=== PATIENT | female | born 1940 | race Caucasian/White ===

== ENCOUNTER → 2018-01-03 | Outpatient (REF) | payer MEDICARE, OTHER | LOC: M SFHCCLAY 14:37 | DX: J02.9 Acute pharyngitis, unspecified (principal) ==

== ENCOUNTER → 2020-01-16 | Outpatient (REF) | payer MEDICARE ==
[~2020-01-16] MED LIST: ASPI-527 PO; ASPI325T47 PO; C 50TAB PO; CLOP75TA2 PO; CYAN100050 PO; LASI20TA3 PO; LISI-538 PO; OMEP-221 PO; POTA1TAB23 PO; PRAV40TA2 PO; VESI5TAB2 PO
[2020-01-16 16:36] LABS: BLOOD UREA NITROGEN 16 MG/DL (7-18); CARBON DIOXIDE LEVEL 30 MEQ/L (21-32); CHLORIDE LEVEL 101 MEQ/L (98-107); CREATININE FOR GFR 0.83 MG/DL (0.55-1.30); GLOMERULAR FILTRATION RATE > 60.0 (>39); GLUCOSE, FASTING 88 MG/DL (70-100); POTASSIUM SERUM 4.3 MEQ/L (3.5-5.1); SODIUM LEVEL 135 MEQ/L (136-145); THYROID STIMULATING HORMONE 0.991 uIU/ML (0.358-3.740)
== END ==
LOC: M SFHCCLAY 11:44
PROVIDERS: ATTEND Family Medicine
DX: I10 Essential (primary) hypertension (principal)
CPT/HCPCS: 80048; 84443; G0463

== ENCOUNTER → 2020-02-28 | Outpatient (REF) | payer MEDICARE | LOC: M SFHCCLAY 17:27 | PROVIDERS: ATTEND Nurse Practitioner Family | DX: L02.215 Cutaneous abscess of perineum (principal) ==

== ENCOUNTER 2020-03-26 15:54 | Inpatient (IN) | payer MEDICARE ==
[~2020-03-26] VITALS: Ht 157.5 cm; Wt 82.8 kg
[2020-03-26] MEDS: HumaLOG INSULIN (NovoLOG) PER UNIT SC SCH (03:56)
[2020-03-26] MEDS ORDERED: ONDANSETRON 4MG/2ML VIAL IV ONE (17:15)
[2020-03-26] MEDS ORDERED: MORPHINE 4 MG/ML 1ML VIAL/SYRINGE (J2270) IV ONE ×2 (17:15→19:15)
[2020-03-26] MEDS ORDERED: NS 1,000 ML IV ONE (17:15)
--- NOTE | 2020-03-26 17:40 | REPVR ---
PROCEDURE INFORMATION: Exam: XR Chest, 2 Views Exam date and time: 03/26/2020 5:14 PM Age: 79 years old Clinical indication: Pain; Other: Epigastric; Additional info: Epigastric pain TECHNIQUE: Imaging protocol: XR of the chest Views: 2 views. COMPARISON: No relevant prior studies available. FINDINGS: Lungs: Unremarkable. No consolidation. Pleural space: Unremarkable. No pleural effusion. No pneumothorax. Heart/Mediastinum: Unremarkable. No cardiomegaly. Bones/joints: Degenerative changes of aging throughout the thoracic spine. IMPRESSION: No acute abnormality. Electronically signed by: Mao Levi On 03/26/2020 17:40:35 PM
[2020-03-26 17:55] LABS: BASO % 0.2 % (0.0-1.0); EOS # 0.1 10^3/uL (0.0-0.5); EOS % 0.5 % (0.0-3.0); HEMATOCRIT 43.8 % (36.0-47.0); HEMOGLOBIN 14.8 g/dl (12.0-15.5); LYMPH # 0.9 10^3/uL (1.5-5.0); LYMPH % 6.4 % (24.0-44.0); MEAN CORPUSCULAR HEMOGLOBIN 29.5 pg (27.0-33.0); MEAN CORPUSCULAR HGB CONC 33.8 g/dl (32.0-36.5); MEAN CORPUSCULAR VOLUME 87.4 fl (80.0-96.0); MONO # 0.8 10^3/uL (0.0-0.8); MONO % 5.7 % (0.0-5.0); NEUTROPHILS # 12.2 10^3/uL (1.5-8.5); NEUTROPHILS % 86.7 % (36.0-66.0); PLATELET COUNT, AUTOMATED 276 10^3/uL (150-450); RED BLOOD COUNT 5.01 10^6/uL (4.00-5.40); WHITE BLOOD COUNT 14.1 10^3/uL (4.0-10.0)
[2020-03-26 18:01] LABS: ALBUMIN 3.8 GM/DL (3.2-5.2); ALT/SGPT 22 U/L (12-78); BILIRUBIN,DIRECT 0.1 MG/DL (0.0-0.2); BILIRUBIN,TOTAL 0.6 MG/DL (0.2-1.0); CK-MB VALUE MASS 1.2 NG/ML (<3.6); CPK CREATINE PHOSPHOKINASE 144 U/L (26-192); LIPASE 181 U/L (73-393); MB/CK RELATIVE INDEX 0.83 (< OR =4); TOTAL PROTEIN 7.3 GM/DL (6.4-8.2); TROPONIN I < 0.02 NG/ML (< 0.10)
[2020-03-26] MEDS ORDERED: ISOVUE-370 76% 100ML VIAL As Ordered ONE (19:04)
--- NOTE | 2020-03-26 19:46 | REPVR ---
PROCEDURE INFORMATION: Exam: CT Abdomen And Pelvis With Contrast Exam date and time: 03/26/2020 7:15 PM Age: 79 years old Clinical indication: Abdominal pain; Epigastric; Additional info: Epigastric pain wraps around back, HX pancreatitits TECHNIQUE: Imaging protocol: Computed tomography of the abdomen and pelvis with intravenous contrast. Radiation optimization: All CT scans at this facility use at least one of these dose optimization techniques: automated exposure control; mA and/or kV adjustment per patient size (includes targeted exams where dose is matched to clinical indication); or iterative reconstruction. Contrast material: ISOVUE 370; Contrast volume: 100 ml; Contrast route: INTRAVENOUS (IV); COMPARISON: No relevant prior studies available. FINDINGS: Liver: Unremarkable. No mass. Gallbladder and bile ducts: Dilated common bile duct measuring 10 mm in diameter is likely secondary to the post cholecystectomy state. The distal duct appears to taper to the ampulla. Correlate with signs and symptoms of biliary obstruction. No calcified duct stone is identified. Consider follow-up MRCP as clinically indicated. Status post cholecystectomy. Pancreas: Mild swelling and hazy density within the fat surrounding the head of the pancreas consistent with acute pancreatitis. No pancreatic duct dilatation. Spleen: Unremarkable. No splenomegaly. Adrenals: Normal. No mass. Kidneys and ureters: Unremarkable. No stones. No hydronephrosis. Stomach and bowel: Small gastric hiatus hernia. Colonic diverticulosis. No diverticulitis or colitis. Normal small bowel. Appendix: No evidence of appendicitis. Intraperitoneal space: Unremarkable. No free air. No significant fluid collection. Vasculature: Moderate atherosclerosis of the abdominal aorta and iliac arteries. No aneurysm. Lymph nodes: Unremarkable. No enlarged lymph nodes. Bladder: Unremarkable as visualized. Reproductive: IUD within the uterus. No adnexal mass. Bones/joints: Degenerative spondylosis of the lower thoracic and lumbar spine. Grade 1 anterolisthesis of L3 and L4. No fracture. Soft tissues: Unremarkable. IMPRESSION: 1. Acute pancreatitis. 2. Status post cholecystectomy. 3. Dilated common bile duct without calcified duct stone or other obstructing mass. Correlate with signs and symptoms of biliary obstruction. Consider follow-up MRCP as clinically indicated. 3. Colonic diverticulosis. 4. Small gastric hiatus hernia. Electronically signed by: Mao Levi On 03/26/2020 19:45:46 PM
[2020-03-26] MEDS ORDERED: ACETAMINOPHEN TAB 650MG DOSE (2X325MG) PO PRN (20:15)
[2020-03-26] MEDS ORDERED: MOM 30ML SUSPENSION UDC PO PRN (20:15)
[2020-03-26] MEDS ORDERED: MAALOX 30 ML SUSP *UDC PO PRN (20:15)
[2020-03-26] MEDS ORDERED: LISI-538 PO (20:36)
[2020-03-26] MEDS ORDERED: POTA1TAB23 PO (20:36)
[2020-03-26] MEDS ORDERED: LASI20TA3 PO (20:36)
[2020-03-26] MEDS ORDERED: VESI5TAB2 PO (20:36)
[2020-03-26] MEDS ORDERED: PRAV40TA2 PO (20:36)
[2020-03-26] MEDS ORDERED: CYAN100050 PO (20:36)
[2020-03-26] MEDS ORDERED: CLOP75TA2 PO (20:36)
[2020-03-26] MEDS ORDERED: OMEP-221 PO (20:36)
[2020-03-26] MEDS ORDERED: C 50TAB PO (20:36)
[2020-03-26 20:48] LABS: CHOLESTEROL LEVEL 153 MG/DL (<200); CHOLESTEROL RISK RATIO 2.684 (<5); HDL CHOLESTEROL 57 MG/DL (>40); LDL CHOLESTEROL 72 MG/DL (<100); NON-HDL-C 96 MG/DL; TRIGLYCERIDES LEVEL 119 MG/DL (<150)
[2020-03-26 21:03] LABS: HEMOGLOBIN A1c 6.8 %
[2020-03-26] MEDS: NS 1,000 ML IV SCH (22:08)
--- NOTE | 2020-03-26 22:27 | HPEPDOC ---
[facility] Medical History & Physical Date of Admission Mar 26, 2020 Date of Service: Mar 26, 2020 Primary Care Physician: Jaziel Claros MD Attending Physician: BETTE HUMPHREY MD History and Physical TIME OF SERVICE: 850pm CHIEF COMPLAINT: abdominal pain HISTORY OF PRESENT ILLNESS: This 79 yr old F w presented w c/o 9/10 in severity constant non-radiating epigastric abdominal pain that begun 3 days ago and improved to 6/10 in severity after she received morphine. She has also had episodes of yellow/green emesis along with fever and chills. REVIEW OF SYSTEMS: 12 point review of systems negative except as listed in HPI PAST MEDICAL/ SURGICAL HISTORY: hx of pancreatitis per pt cause is unclear (has been evaluated at [facility]) Chronic HTN TIA Appendectomy Cholecystectomy Tonsillectomy Bladder suspension surgery SOCIAL HISTORY: Former smoker/ doesnt drink or use recreational drugs / retired / lives in [place] but was born close to [facility] and has a summer home in this area FAMILY HISTORY: Reviewed none ALLERGIES: Please see below. HOME MEDICATIONS: Please see below. PHYSICAL EXAM Vital Signs Date Time Temp Pulse Resp B/P (MAP) Pulse Ox O2 Delivery O2 Flow Rate FiO2 03/26/20 15:54 97.0 86 20 224/105 (144) 97 Room Air GENERAL APPEARANCE: obese/ well developed /NAD HEENT: no scleral icterus / EOMI CARDIOVASCULAR: RRR/NMRG / radial pulse intact LUNGS: CTAB on RA ABDOMEN: distended/ tender w percussion MUSCULOSKELETAL: JERRI x 4 INTEGUMENT: no generalized pallor or jaundice NEUROLOGICAL: CN -12 intact / speech not dysarthric PSYCHIATRIC: A&Ox 3 /able to understand and follow all commands LABORATORY DATA: 03/26/20 17:13 Immature Granulocyte % (Auto) 0.5, Neutrophils (%) (Auto) 86.7H, Lymphocytes (%) (Auto) 6.4L, Monocytes (%) (Auto) 5.7H, Eosinophils (%) (Auto) 0.5, Basophils (%) (Auto) 0.2, Neutrophils # (Auto) 12.2H, Lymphocytes # (Auto) 0.9L, Monocytes # (Auto) 0.8, Eosinophils # (Auto) 0.1, Basophils # (Auto) 0.0, Nucleated Red Blood Cells % (auto) 0.0, Total Bilirubin 0.6, Direct Bilirubin 0.1, Aspartate Amino Transf (AST/SGOT) 28, Alanine Aminotransferase (ALT/SGPT) 22, Alkaline Phosphatase 74, Total Creatine Kinase 144, Creatine Kinase MB 1.2, Creatine Kinase MB Relative Index 0.83, Troponin I < 0.02, Total Protein 7.3, Albumin 3.8, Albumin/Globulin Ratio 1.1L, Triglycerides Level 119, Total Cholesterol 153, LDL Cholesterol 72, Non-HDL Cholesterol (LDL + VLDL) 96, Total HDL Cholesterol 57, Cholesterol/HDL Ratio 2.684, Lipase 181 03/26/20 18:55: Urine Color STRAW, Urine Appearance CLEAR, Urine pH 6.0, Urine Specific Dennison 1.006, Urine Protein NEGATIVE, Urine Glucose (UA) NEGATIVE, Urine Ketones TRACEH, Urine Blood NEGATIVE, Urine Nitrite NEGATIVE, Urine Bilirubin NEGATIVE, Urine Urobilinogen 0.2, Urine Leukocyte Esterase NEGATIVE, Urine WBC (Auto) 0, Urine RBC (Auto) 5H, Urine Hyaline Casts (Auto) 0, Urine Bacteria (Auto) NEGATIVE, Urine Squamous Epithelial Cells 0, Urine Mucus (Auto) SMALL, Urine Sperm (Auto IMAGING: Chest xray No acute abnormality CT abd/pelvis 1. Acute pancreatitis. 2. Status post cholecystectomy. 3. Dilated common bile duct without calcified duct stone or other obstructing mass. Correlate with signs and symptoms of biliary obstruction. Consider follow-up MRCP as clinically indicated. 3. Colonic diverticulosis. 4. Small gastric hiatus hernia. MICROBIOLOGY: Please see below. ASSESSMENT: is a 79 yr old w a hx of pancreatitis and cholecystectomy who presented w c/o of abdominal pain which is likely due to pancreatitis based on CT scan findings. PLAN: 1 Acute recurrent pancreatitis Diagnosis made based on presence of 2/3 of abdominal pain, consistent CT scan findings and elevated lipase Her lipase is likely low chronic pancreatitis. LFTs are unremarkable. Possible causes: ethanol, hyperlipidemia, hypercalcemia, autoimmune (ODONNELL) or furosemide Plan: admit to medical floor / NPO/ IVF / f/u serum ETO, lipid panel, Ca ++ / dc furosemide / IV toradol & morphine PRN for pain / obtain records from [facility] 2 Dilated CBD Plan: f/u MRCP 3 Leucocytosis Likely reactive bc she doesnt have other SIRS criteria Plan: monitor vitals 4 Uncontrolled HTN Plan: c/w Lisinopril / dc lasix and start amlodipine 5 TIA Plan: clopidogrel and pravastatin 6 Obesity w BMI of 34.1 complicates care Plan: f/u A1C & w PCP for sleep apnea screening DVT Px w lovenox Dispo: home after more than 2 midnights stay LATE ENTRY 225AM #Newly Diagnosed DM A1C 6.8% Plan: FSBS, SSI, hypoblycemia protocol / day time team to start metformin when she is ready for discharge Home Medications Scheduled Ascorbic Acid (Vitamin C) 500 Mg Tablet, 500 MG PO DAILY Clopidogrel Bisulfate (Clopidogrel) 75 Mg Tablet, 75 MG PO DAILY Cyanocobalamin (Vitamin B-12) (Vitamin B-12) 1,000 Mcg Tablet, 1,000 MCG PO DAILY Furosemide (Lasix) 20 Mg Tablet, 20 MG PO DAILY Lisinopril (Lisinopril) 20 Mg Tablet, 20 MG PO QHS Omeprazole (Omeprazole) 40 Mg Capsule.dr, 40 MG PO DAILY Potassium Chloride (Potassium Chloride) 10 Meq Tablet.er, 10 MEQ PO DAILY Pravastatin Sodium (Pravastatin Sodium) 40 Mg Tablet, 40 MG PO QHS Solifenacin Succinate (Vesicare) 5 Mg Tablet, 5 MG PO DAILY Allergies Coded Allergies: No Known Allergies (Unverified , 03/26/20) A-FIB/CHADSVASC A-FIB History Current/History of A-Fib/PAF?: No Current PO Anticoag Therapy: BETTE Ricci MD Mar 26, 2020 22:27
[2020-03-26] MEDS ORDERED: lisinopriL 20 MG TAB PO SCH (22:30)
[2020-03-27] MEDS: PRAVASTATIN 20 MG TAB PO SCH ×2 (00:36→21:47)
[2020-03-27] MEDS: MORPHINE 2 MG/ML 1ML VIAL (J2270) IV PRN ×2 (00:37→03:51)
[2020-03-27 00:45] VITALS: BP 132/84
[2020-03-27] MEDS ORDERED: GLUCOSE 4GM CHEW TABLET PO PRN (02:15)
[2020-03-27] MEDS ORDERED: GLUCAGON INJ 1MG VIAL SC PRN (02:15)
[2020-03-27] MEDS ORDERED: DEXTROSE 50% 50 ML SYRINGE IV PRN (02:15)
[2020-03-27] MEDS: NS 1,000 ML IV SCH ×2 (03:53→11:51)
[2020-03-27] MEDS ORDERED: ONDANSETRON 4 MG ORAL DISINTEGRATING TAB PO PRN (04:00)
[2020-03-27 05:55] LABS: HEMATOCRIT 45.9 % (36.0-47.0); HEMOGLOBIN 15.1 g/dl (12.0-15.5); MEAN CORPUSCULAR HEMOGLOBIN 30.4 pg (27.0-33.0); MEAN CORPUSCULAR HGB CONC 32.9 g/dl (32.0-36.5); MEAN CORPUSCULAR VOLUME 92.5 fl (80.0-96.0); PLATELET COUNT, AUTOMATED 199 10^3/uL (150-450); RED BLOOD COUNT 4.96 10^6/uL (4.00-5.40); WHITE BLOOD COUNT 8.4 10^3/uL (4.0-10.0)
[2020-03-27] MEDS: KETOROLAC TROMETHAMINE 10 MG TAB PO SCH ×3 (06:23→18:09)
[2020-03-27 06:25] LABS: BLOOD UREA NITROGEN 11 MG/DL (7-18); CALCIUM LEVEL 8.4 MG/DL (8.8-10.2); CARBON DIOXIDE LEVEL 24 MEQ/L (21-32); CHLORIDE LEVEL 103 MEQ/L (98-107); CREATININE FOR GFR 0.62 MG/DL (0.55-1.30); GLOMERULAR FILTRATION RATE > 60.0 (>39); GLUCOSE, FASTING 122 MG/DL (70-100); LDH LACTATE DEHYDROGENASE 202 U/L (84-246); SODIUM LEVEL 136 MEQ/L (136-145)
[2020-03-27] MEDS: HumaLOG INSULIN (NovoLOG) PER UNIT SC SCH ×4 (06:32→21:00)
[2020-03-27 08:00] VITALS: BP 128/74
[2020-03-27] MEDS: OMEPRAZOLE 20 MG CAP PO SCH (08:55)
[2020-03-27] MEDS: SOLIFENACIN 5 MG TAB PO SCH (08:55)
[2020-03-27] MEDS: CLOPIDOGREL 75 MG TAB PO SCH (08:56)
[2020-03-27] MEDS: POTASSIUM CHLORIDE 10 MEQ SR TABLET PO SCH (08:56)
[2020-03-27] MEDS: ENOXAPARIN 40MG/0.4ML SYRINGE (J1650 PER 10MG) SC SCH (08:56)
[2020-03-27] MEDS ORDERED: FUROSEMIDE 20 MG TAB PO SCH (09:00)
[2020-03-27 12:00] VITALS: BP 162/82
[2020-03-27 16:00] VITALS: BP 188/82
[2020-03-27] MEDS ORDERED: amLODIPine 10 MG TAB PO ONE (18:00)
[2020-03-27] MEDS ORDERED: NS 1,000 ML IV SCH (18:00)
[2020-03-27 20:00] VITALS: BP 186/88
--- NOTE | 2020-03-27 21:02 | REPVR ---
PROCEDURE INFORMATION: Exam: MR Abdomen Without Contrast Exam date and time: 03/27/2020 8:40 PM Age: 79 years old Clinical indication: Abdominal pain; Acute; Patient HX: Urq abd pain, nausea >1 day; Additional info: Acute pancreatitis w dilated cbd on CT R/O stone or mass TECHNIQUE: Imaging protocol: MR of the abdomen without contrast. 3D rendering (Not supervised by radiologist): MIP and/or 3D reconstructed images were created by the technologist. COMPARISON: CT ABD/PEL W/IV CONTRAST ONLY 03/26/2020 7:09 PM FINDINGS: Liver: No mass. Gallbladder and bile ducts: There has been a cholecystectomy. Mild dilatation of the common bile duct measures 7.4 mm. Finding likely related to post cholecystectomy physiology. No evidence of choledocholithiasis or obstructing mass. No significant intrahepatic biliary dilatation. Pancreas: Inflammatory changes surround the pancreatic head which is slightly enlarged. Findings consistent with acute focal pancreatitis. Spleen: Unremarkable. No splenomegaly. Adrenals: Unremarkable. No mass. Kidneys and ureters: Unremarkable. No solid mass. No hydronephrosis. Stomach and bowel: Visualized stomach and intestines are unremarkable. Intraperitoneal space: No free fluid. Arteries: No abdominal aortic aneurysm. Bones/joints: Levoscoliosis and degenerative spondylosis. Soft tissues: Unremarkable. IMPRESSION: 1. There has been a cholecystectomy. 2. Mild dilatation of the common bile duct measures 7.4 mm. Finding likely related to post cholecystectomy physiology. No evidence of choledocholithiasis or obstructing mass. No significant intrahepatic biliary dilatation. 3. Inflammatory changes surround the pancreatic head which is slightly enlarged. Findings consistent with acute focal pancreatitis. Electronically signed by: Frantz Hwang On 03/27/2020 21:02:29 PM
[2020-03-27] MEDS: lisinopriL 20 MG TAB PO SCH (21:47)
[2020-03-28] VITALS: BP 158/80
[2020-03-28] MEDS: KETOROLAC TROMETHAMINE 10 MG TAB PO SCH ×2 (00:26→06:35)
[2020-03-28 04:00] VITALS: BP 138/70
[2020-03-28] MEDS: HumaLOG INSULIN (NovoLOG) PER UNIT SC SCH (07:30)
[2020-03-28 08:00] VITALS: BP 134/78
[2020-03-28] MEDS: ENOXAPARIN 40MG/0.4ML SYRINGE (J1650 PER 10MG) SC SCH (09:00)
[2020-03-28] MEDS ORDERED: amLODIPine 10 MG TAB PO SCH (09:00)
[2020-03-28 09:03] LABS: BASO % 0.5 % (0.0-1.0); EOS # 0.2 10^3/uL (0.0-0.5); EOS % 2.2 % (0.0-3.0); HEMATOCRIT 42.4 % (36.0-47.0); LYMPH # 1.1 10^3/uL (1.5-5.0); LYMPH % 12.6 % (24.0-44.0); MEAN CORPUSCULAR HEMOGLOBIN 29.9 pg (27.0-33.0); MEAN CORPUSCULAR VOLUME 90.6 fl (80.0-96.0); MONO # 0.7 10^3/uL (0.0-0.8); MONO % 8.1 % (0.0-5.0); NEUTROPHILS # 6.6 10^3/uL (1.5-8.5); NEUTROPHILS % 76.3 % (36.0-66.0); PLATELET COUNT, AUTOMATED 251 10^3/uL (150-450); RED BLOOD COUNT 4.68 10^6/uL (4.00-5.40); WHITE BLOOD COUNT 8.6 10^3/uL (4.0-10.0)
[2020-03-28 09:25] VITALS: BP 134/78
[2020-03-28] MEDS: SOLIFENACIN 5 MG TAB PO SCH (09:25)
[2020-03-28] MEDS: lisinopriL 20 MG TAB PO SCH (09:25)
[2020-03-28] MEDS: CLOPIDOGREL 75 MG TAB PO SCH (09:26)
[2020-03-28] MEDS: OMEPRAZOLE 20 MG CAP PO SCH (09:26)
[2020-03-28 09:27] LABS: ALBUMIN 3.2 GM/DL (3.2-5.2); ALT/SGPT 38 U/L (12-78); BILIRUBIN,TOTAL 0.4 MG/DL (0.2-1.0); BLOOD UREA NITROGEN 9 MG/DL (7-18); C REACTIVE PROTEIN QUANTITATIV 3.58 MG/DL (0.00-0.30); CALCIUM LEVEL 8.5 MG/DL (8.8-10.2); CARBON DIOXIDE LEVEL 27 MEQ/L (21-32); CHLORIDE LEVEL 105 MEQ/L (98-107); CREATININE FOR GFR 0.73 MG/DL (0.55-1.30); GLOMERULAR FILTRATION RATE > 60.0 (>39); GLUCOSE, FASTING 109 MG/DL (70-100); LIPASE 62 U/L (73-393); POTASSIUM SERUM 3.9 MEQ/L (3.5-5.1); SODIUM LEVEL 139 MEQ/L (136-145); TOTAL PROTEIN 6.4 GM/DL (6.4-8.2)
[2020-03-28] MEDS: POTASSIUM CHLORIDE 10 MEQ SR TABLET PO SCH (09:27)
[2020-03-28 09:39] LABS: ERYTHROCYTE SEDIMENTATION RATE 35 mm/hr (0-30)
--- NOTE | 2020-03-29 13:21 | IPN ---
DATE: 03/27/2020 SUBJECTIVE: The patient is seen and examined at the bedside. Chart has been reviewed. Patient still complains of epigastric mid abdominal pain without radiation to the back. No fever or chills. No nausea or vomiting. Pain is improved from yesterday. PHYSICAL EXAMINATION: VITAL SIGNS: Temperature is 97.6, pulse is 78, respiratory rate is 16, blood pressure is 128/74, 94% on room air. GENERAL: The patient is awake, alert and oriented x3, answering questions appropriately. No conversational dyspnea or use of respiratory or accessory muscles. HEENT: Pupils are equally reactive to light and accommodation. Extraocular muscles are intact. Dry mucous membranes. No icterus or jaundice. NECK: No JVD. No thyromegaly. No cervical lymphadenopathy. LUNGS: Clear to auscultation. No wheezing, rales or rhonchi. HEART: S1 and S2. Sinus rhythm. No murmurs, rubs or gallops. ABDOMEN: Soft, slightly tender in the epigastric, left upper quadrant. No rebound or guarding. Positive bowel sounds in all four quadrants. Nondistended. No abdominal bruit. No CVA tenderness. EXTREMITIES: No cyanosis, clubbing or any pitting edema. LABORATORY DATA: White count 8.4, hemoglobin 15, hematocrit 45, platelet count 199,000, sodium 136, potassium 4, chloride 103, bicarbonate 24, BUN 11, creatinine 0.62, glucose of 122, A1c is 6.8. __ 8.6, direct bilirubin of 0.1, AST 28, ALT 22, alkaline phosphatase is 74, LDH is 202. Lipid profile: LDL 72, non-HDL 96, total HDL 57, lipase of 181. CT of abdomen and pelvis on 03/26/2020: Dilated common bile duct measuring 10 mm in diameter secondary to post-cholecystectomy state. Distal duct appears to taper to the ampulla. No calcified duct stone was identified, consider MRCP, status post cholecystectomy. Mild swelling and hazy density within the fat surrounding the head of the pancreas consistent with acute pancreatitis. ASSESSMENT AND PLAN: This is a 79-year-old female with a history of prior pancreatitis admitted to [facility] at [facility], hypertension, TIA, appendectomy, cholecystectomy, bladder surgery who presented to the Emergency Room with a three day history of nonradiating epigastric abdominal pain and found to have acute pancreatitis. IMPRESSION: 1. Recurrent acute pancreatitis. Patient denies any history of alcohol abuse with prior cholecystectomy, slightly dilated biliary duct. Will obtain MRCP. Continue with IV fluids and NPO status. If dilated or worsening bilirubin we will consult GI for ERCP, continue with supportive care, pain medications and bowel regimen. 2. Hypertension, on Lasix and Norvasc. 3. TIA, on Plavix and pravastatin. 4. Obesity, BMI is 34 complicating care. 5. DVT prophylaxis with Lovenox. 6. Disposition: Two to three days of hospital, advance diet and discharge home. MTDD
--- NOTE | 2020-04-05 15:26 | ECGEPIP ---
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
--- NOTE | 2020-04-11 11:54 | DSES ---
DATE OF ADMISSION: 03/26/2020 DATE OF DISCHARGE: 03/28/2020 PRIMARY DISCHARGE DIAGNOSES: 1. Acute pancreatitis status post cholecystectomy. MRCP is negative. 2. Chronic hypertension. 3. History of transient ischemic attack. DISCHARGE MEDICATIONS: - ascorbic acid 500 daily - Plavix 75 daily - vitamin B12 at 1000 mcg daily - Lasix 20 mg daily - Lisinopril 20 every night - omeprazole 40 daily - potassium 10 mEq daily - pravastatin 40 mg every night - VesiCare 5 mg daily HOSPITAL COURSE: This is a 79-year-old female who presented to the emergency room on 03/26/2020 due to complaint of epigastric abdominal pain for 3 days. Despite morphine, patient also complained of yellow-green emesis. Was afebrile with white count of 14,000 on arrival. Diagnosed with pancreatitis. CT abdomen and pelvis did not show any abscess or pseudocyst. There was mild swelling and hazy density within the fat surrounding the head of the pancreas but no pancreatic duct dilatation. No calcified duct stone was identified. MRCP performed showed cholecystectomy, mild dilatation of the common bile duct, measuring 7.4 mm, related to post cholecystectomy physiology. No evidence of choledocholithiasis or obstructing mass. No significant intrahepatic biliary dilatation, Inflammatory changes surrounding the pancreatic head consistent with acute focal pancreatitis. Patient was kept nothing by mouth and given intravenous fluids. Lasix was discontinued temporarily. She had 2.6 liters of input with 4.5 liters of output. Remained net negative with weight remaining at 82.8 kg. Patient was advanced on a diet without worsening abdominal pain, nausea, vomiting, fever, or chills. She was subsequently discharged home in stable condition to followup with her primary care physician within a week of discharge and referral to manager marketing due to recurrent pancreatitis. PHYSICAL EXAMINATION ON DISCHARGE: VITAL SIGNS: Temperature 98, pulse 75, respiratory rate 20, blood pressure 134/78, 96% on room air. GENERAL: Awake, alert, oriented times three. answering questions appropriately. Anicteric sclerae. No jaundice, no icterus. No jugular venous distention (JVD) or thyromegaly. LUNGS: Clear to auscultation. No wheezing, rales, or rhonchi. HEART: S1, S2, sinus rhythm. ABDOMEN: Soft, nontender, nondistended. Positive bowel sounds. EXTREMITIES: No cyanosis, clubbing, or pitting edema. DISCHARGE LABORATORY DATA: March 28: White count 8.6, hemoglobin 14, hematocrit 42, platelet count 251. Sodium 139, potassium 3.9, chloride 105, bicarbonate 27, BUN 9, creatinine 0.73, glucose 109. Lipase of 62. Microbiology: None. IMAGING STUDIES: On March 26, CT abdomen and pelvis: Focal pancreatitis. Status post cholecystectomy. Dilated common bile duct without calcified stone or other obstructing mass. Consider MRCP. Colonic diverticulosis. Gastric hiatal hernia. MRCP 03/27/2020: Cholecystectomy. Mild dilatation of the common bile duct measures 7.4 mm, consistent with prior cholecystectomy physiology. No evidence of choledocholithiasis or obstructive mass. No significant intrahepatic biliary dilatation. Inflammatory changes surrounding pancreatic head, which is slightly enlarged, consistent with acute focal pancreatitis. TIME SPENT ON DISCHARGE: 30 minutes. MTDD
== END 2020-03-28 11:40 | disposition home or self-care (01) | DRG 440 ==
LOC: M ED 15:54 → M ED INP 20:06 → ENRESERV 22:58 → M PCU 03-27 00:04
PROVIDERS: ADMIT Internal Medicine; ATTEND Internal Medicine
DX: K85.90 Acute pancreatitis without necrosis or infection, unspecified (principal); I10 Essential (primary) hypertension; Z86.73 Personal history of transient ischemic attack (TIA), and cerebral infarction without residual deficits; E66.9 Obesity, unspecified; Z68.34 Body mass index [BMI] 34.0-34.9, adult; E11.9 Type 2 diabetes mellitus without complications; Z79.899 Other long term (current) drug therapy

== ENCOUNTER 2020-04-03 11:58 | Inpatient (IN) | payer MEDICARE ==
[~2020-04-03] VITALS: Ht 157.5 cm; Wt 80.7 kg
[~2020-04-03 11:58] MED LIST changes: +ASCORBIC ACID 500 MG TAB PO SCH; -ASPI-527 PO; -ASPI325T47 PO; +FUROSEMIDE 20 MG TAB PO SCH; +POTASSIUM CHLORIDE 10 MEQ SR TABLET PO SCH
[2020-04-03] MEDS ORDERED: ONDANSETRON 4MG/2ML VIAL IV ONE (13:00)
[2020-04-03] MEDS ORDERED: NS 1,000 ML IV SCH ×2 (13:00→16:30)
[2020-04-03] MEDS ORDERED: ASPI325T47 PO (13:16)
[2020-04-03 13:43] LABS: BASO % 0.3 % (0.0-1.0); EOS # 0.1 10^3/uL (0.0-0.5); EOS % 0.5 % (0.0-3.0); HEMOGLOBIN 15.6 g/dl (12.0-15.5); MEAN CORPUSCULAR HEMOGLOBIN 29.8 pg (27.0-33.0); MEAN CORPUSCULAR HGB CONC 33.9 g/dl (32.0-36.5); MONO # 0.6 10^3/uL (0.0-0.8); MONO % 5.1 % (0.0-5.0); NEUTROPHILS # 10.6 10^3/uL (1.5-8.5); NEUTROPHILS % 85.5 % (36.0-66.0); PLATELET COUNT, AUTOMATED 312 10^3/uL (150-450); RED BLOOD COUNT 5.23 10^6/uL (4.00-5.40); WHITE BLOOD COUNT 12.4 10^3/uL (4.0-10.0)
[2020-04-03] MEDS: MORPHINE 4 MG/ML 1ML VIAL/SYRINGE (J2270) IV PRN ×2 (13:45→16:16)
[2020-04-03 14:14] LABS: ALT/SGPT 23 U/L (12-78); BILIRUBIN,DIRECT 0.2 MG/DL (0.0-0.2); BILIRUBIN,TOTAL 0.5 MG/DL (0.2-1.0); LIPASE 285 U/L (73-393); TOTAL PROTEIN 7.7 GM/DL (6.4-8.2)
[2020-04-03 14:39] LABS: BLOOD UREA NITROGEN 13 MG/DL (7-18); CALCIUM LEVEL 8.9 MG/DL (8.8-10.2); CARBON DIOXIDE LEVEL 26 MEQ/L (21-32); CHLORIDE LEVEL 98 MEQ/L (98-107); CREATININE FOR GFR 0.76 MG/DL (0.55-1.30); GLOMERULAR FILTRATION RATE > 60.0 (>39); GLUCOSE, FASTING 131 MG/DL (70-100); POTASSIUM SERUM 3.8 MEQ/L (3.5-5.1); SODIUM LEVEL 131 MEQ/L (136-145)
[2020-04-03] MEDS ORDERED: ISOVUE-370 76% 100ML VIAL As Ordered ONE (14:57)
[2020-04-03 15:09] LABS: CK-MB VALUE MASS < 1.0 NG/ML (<3.6); CPK CREATINE PHOSPHOKINASE 68 U/L (26-192); MB/CK RELATIVE INDEX 1.47 (< OR =4); TROPONIN I < 0.02 NG/ML (< 0.10)
--- NOTE | 2020-04-03 16:17 | REPVR ---
PROCEDURE INFORMATION: Exam: CT Abdomen And Pelvis With Contrast Exam date and time: 04/03/2020 3:41 PM Age: 79 years old Clinical indication: Abdominal pain; Generalized; Additional info: Abd pain TECHNIQUE: Imaging protocol: Computed tomography of the abdomen and pelvis with intravenous contrast. Radiation optimization: All CT scans at this facility use at least one of these dose optimization techniques: automated exposure control; mA and/or kV adjustment per patient size (includes targeted exams where dose is matched to clinical indication); or iterative reconstruction. Contrast material: ISOVUE 370; Contrast volume: 100 ml; Contrast route: INTRAVENOUS (IV); COMPARISON: CT ABD/PEL W/IV CONTRAST ONLY 03/26/2020 7:09 PM FINDINGS: Mediastinal space: There is a small hiatal hernia. Liver: There is diffuse hepatic steatosis. There is no focal hepatic lesion. Gallbladder and bile ducts: Status post cholecystectomy. The common bile duct is mildly dilated, 10 mm. No intrahepatic biliary ductal dilatation. No obstructive calculus or lesion. Diameter was similar on previous scan. Pancreas: No focal abnormality of the pancreas. There is mild infiltration of the peripancreatic fat at the level of the pancreatic head. This is decreased compared with prior scan. Spleen: There is a 3 mm hypodensity in the spleen. It is too small for further characterization. Adrenals: The adrenals are normal. Kidneys and ureters: The kidneys are normal.No hydronephrosis. Stomach and bowel: There are extensive colonic diverticula. No focal wall thickening or inflammation. No bowel distension. Appendix: No evidence of appendicitis. Intraperitoneal space: There is no free fluid or fluid collection. Free air. Vasculature: Unremarkable. No abdominal aortic aneurysm. Lymph nodes: Unremarkable. No enlarged lymph nodes. Bladder: The bladder is normal with no evidence of calculi. Reproductive: There is an IUD within the uterus. Bones/joints: There are degenerative changes of the spine. Fracture. No focal osseous leak Soft tissues: Unremarkable. IMPRESSION: 1. Mild peripancreatic inflammatory changes seen in the region of the head of the pancreas. This is consistent with pancreatitis. It is less extensive than seen on the recent comparison scan 2. Extensive diverticulosis. No evidence of acute diverticulitis. 3. Status post cholecystectomy stable mildly dilated common bile duct. Electronically signed by: Merlin Rangel On 04/03/2020 16:17:04 PM
[2020-04-03] MEDS ORDERED: LABETALOL 100MG/20ML VIAL IV STA (16:36)
[2020-04-03] MEDS ORDERED: PERCOCET 5MG/325MG TAB PO PRN ×2 (16:45)
[2020-04-03] MEDS ORDERED: lisinopriL 20 MG TAB PO ONE (16:45)
[2020-04-03] MEDS ORDERED: SENOKOT S TAB PO PRN (16:45)
[2020-04-03] MEDS ORDERED: hydrALAZINE 20MG/ML 1ML VIAL (J0360 PER 20MG) IV SCH (17:00)
[2020-04-03] MEDS: NS 1,000 ML IV SCH ×2 (17:52→18:00)
[2020-04-03 20:30] VITALS: BP 160/76
[2020-04-03] MEDS: ONDANSETRON 4MG/2ML VIAL IV PRN (20:36)
[2020-04-03] MEDS ORDERED: LABETALOL 100 MG TAB PO SCH (21:00)
[2020-04-03] MEDS ORDERED: PRAVASTATIN 20 MG TAB PO SCH (21:00)
[2020-04-03] MEDS ORDERED: SLF 3 ML SYR IV PRN (21:15)
[2020-04-03] MEDS: SLF 3 ML SYR IV SCH (21:34)
--- NOTE | 2020-04-03 23:27 | CR.PDOC ---
General Date of Consultation: Apr 03, 2020 Referring Provider: EMILY WOLFE MD Attending Physician: TEMITOPE VENTURA MD Consultation Primary physician/ hospitalist: Dr. Melo Reason for consult: Recurrent pancreatitis. HPI: 79 year old female patient with HLD, chronic acid reflux, was admitted to [facility] for persistent epigastric abdominal pain and is noted to have CT abdomen evidence of pancreatitis. GI was consulted for the same. Patient was seen and examined in ER. Patient reports having recurrent episodes of pancreatitis, and family history of pancreatitis. She started taking high dose of her regular pain medication (Aspirin 325mg which she uses for arthritis joint pains) due to her abdominal pain. Patient was recently [facility] ER for similar pain in past when she was diagnosed with pancreatitis. Prior hospitalization labs reviewed ( lipase is not elevated). Patient denies any loss of appetite or unintentional weight loss. Pertinent negative GI symptoms: Patient denies fever, sick contacts, recent travel, loss of appetite, early satiety or unintentional weight loss. No history of hematemesis, melena or hematochezia. Patient reports regular bowel movements. Review of Systems: GI: as stated above CVS: No chest pain, No palpitations, No leg swelling. RS: No Shortness of breath, No Wheezing, no cough ROUTE CLERK: No dizziness, No motor weakness, No sensory problems Hematology: No bruising, No gum bleeding, Musculoskeletal: No joint pain, ambulating well. Skin: No rash : No hematuria, No burning sensation of the urine ENT: No ear discharge/ pain, No dysphagia. Eyes: No photophobia. Jaundice Home medications: reviewed. Antithrombotic agents - none Medical h/o: As above. Surgical h/o: None on abdomen. Social h/o: Alcohol - denies , smoking - denies ( past history of smoking) IVDA/ drugs - denies. Family h/o of GI cancers - None Prior Endoscopies: None in [facility]. reports following in GI in [place]. Prior GI evaluations: None in [facility]. Exam: Vitals: reviewed General: Alert and oriented x 3, not in distress HEENT: NO pallor, no icterus. Normal oropharynx, NO cervical lymph nodes. Chest: symmetric with bilateral clear air entry, CVS: S1, S2 heard, normal, no murmurs . Abdomen: non-distended, no surgical scars, soft, non-tender, no palpable masses, normal bowel sounds heard. Rectal exam: Patient refused / Deferred at this time in view of scheduled colonoscopy. Extremities: no pedal edema, pulses palpable. ROUTE CLERK: no focal motor or sensory deficits. Moves all extremities Skin: no rash. Labs: reviewed. Imaging: reviewed. Impression: -- Recurrent episodes of abdominal pain, epigastric pain radiating to back. With normal lipase and abnormal CT scan abdomen, -- Needs further evaluation. Recommendations: - Patient educated about the test results, possible differential diagnoses and All questions answered. - Clear liquid diet for now. - Continue the IV hydration prefer lactated ringers, dose adjusted to 3ml/kg/hour. Monitor renal function. Urine output and respiration status. - Will obtain MRI with contrast -- Pancreatic protocol.. - Will obtain fasting liver panel. - Hold off on high dose aspirin for now. Continue with PPI twice daily for now. NO contraindication for low dose aspirin 81mg - Depending on the above results and clinical course to consider ERCP or EGD. Plan of care discussed with patient and primary team. Patient verbalized u nderstanding and agreed with the plan. Follow up: 04/04/2020 Patient is noted to have visual deficit and being evaluated for possible TIA. As per discussion with primary team patient symptoms of abdominal pain have improved and in view of other acute issues, patient to follow with above recommendations as outpatient with her primary GI. Patient is educated about the plan of care. Recall GI if any change in status. Vital Signs/I&O Vital Signs Date Time Temp Pulse Resp B/P (MAP) Pulse Ox O2 Delivery O2 Flow Rate FiO2 04/03/20 21:15 90 160/76 04/03/20 20:30 97.0 18 90 Room Air Laboratory Data Labs 24H Laboratory Tests 2 04/03/20 13:27: Immature Granulocyte % (Auto) 0.6, Neutrophils (%) (Auto) 85.5H, Lymphocytes (%) (Auto) 8.0L, Monocytes (%) (Auto) 5.1H, Eosinophils (%) (Auto) 0.5, Basophils (%) (Auto) 0.3, Neutrophils # (Auto) 10.6H, Lymphocytes # (Auto) 1.0L, Monocytes # (Auto) 0.6, Eosinophils # (Auto) 0.1, Basophils # (Auto) 0.0, Nucleated Red B lood Cells % (auto) 0.0, Anion Gap 7L, Glomerular Filtration Rate > 60.0, Calcium Level 8.9, Total Bilirubin 0.5, Direct Bilirubin 0.2, Aspartate Amino Transf (AST/SGOT) 11, Alanine Aminotransferase (ALT/SGPT) 23, Alkaline Phosphatase 83, Total Creatine Kinase 68, Creatine Kinase MB < 1.0, Creatine Kinase MB Relative Index 1.47, Troponin I < 0.02, Total Protein 7.7, Albumin 4.0, Albumin/Globulin Ratio 1.1L, Lipase 285 CBC/BMP Laboratory Tests 04/03/20 13:27 Allergies Coded Allergies: No Known Allergies (Unverified , 03/26/20) Home Medications Scheduled Ascorbic Acid (Vitamin C) 500 Mg Tablet, 500 MG PO DAILY, (Reported) Aspirin (Aspirin EC) 325 Mg Tablet.dr, 325 MG PO DAILY for pain for 30 Days, #30 Clopidogrel Bisulfate (Clopidogrel) 75 Mg Tablet, 75 MG PO DAILY, (Reported) Cyanocobalamin (Vitamin B-12) (Vitamin B-12) 1,000 Mcg Tablet, 1,000 MCG PO DAILY, (Reported) Furosemide (Lasix) 20 Mg Tablet, 20 MG PO DAILY, (Reported) Lisinopril (Lisinopril) 20 Mg Tablet, 20 MG PO QHS, (Reported) Omeprazole (Omeprazole) 40 Mg Capsule.dr, 40 MG PO DAILY, (Reported) Potassium Chloride (Potassium Chloride) 10 Meq Tablet.er, 10 MEQ PO DAILY, (Reported) Pravastatin Sodium (Pravastatin Sodium) 40 Mg Tablet, 40 MG PO QHS, (Reported) Solifenacin Succinate (Vesicare) 5 Mg Tablet, 5 MG PO DAILY, (Reported) TEMITOPE VENTURA MD Apr 03, 2020 23:27
[2020-04-04] VITALS (8 sets, daily range): BP systolic 108–161; BP diastolic 58–86
[2020-04-04] MEDS: ONDANSETRON 4MG/2ML VIAL IV PRN ×2 (03:49→18:36)
[2020-04-04] MEDS: hydrALAZINE 20MG/ML 1ML VIAL (J0360 PER 20MG) IV SCH ×7 (03:51→23:49)
[2020-04-04] MEDS: SLF 3 ML SYR IV SCH ×3 (03:56→20:36)
--- NOTE | 2020-04-04 06:22 | HPE ---
DATE OF ADMISSION: 04/03/2020 CHIEF COMPLAINT: Epigastric abdominal pain. This is a 79-year-old female recently diagnosed with acute focal pancreatitis, admitted March 26-March 28. Magnetic resonance cholangiopancreatography (MRCP) was unremarkable. Patient had a post cholecystectomy. Responded to intravenous (IV) fluids, nothing by mouth status, pain medications, and tolerated her diet prior to hospital discharge. After being home for 2 days, patient developed epigastric abdominal discomfort with radiation to the back. No fever or chills. Described as crampy, sharp at times, and alleviated by pain medications at home. Re-presents to the emergency room for further evaluation. In the emergency room (ER), she was found to have hypertensive urgency, blood pressure of 210/96 due to 10/10 epigastric pain. White count is elevated at 12,000 without any fever. Repeat CT abdomen and pelvis shows cholecystectomy with mild peripancreatic inflammatory changes in the region of the head of the pancreas, less extensive than seen on the recent comparison. Extensive diverticulosis. No evidence of acute diverticulitis and is status post cholecystectomy, stable. Mildly dilated common bile duct. Liver function tests are within normal limits with normal bilirubin, AST, ALT, and lipase normal at 285. Hospitalist was called to admit for recurrent pancreatitis. Dr. Mcclendon, gastrointestinal (GI) has been consulted for help in management. Previous workup included ruling out alcohol abuse. Patient denies any alcohol abuse in the past or recently. She has had gallbladder removed. Cholesterol levels were within normal and so were the calcium levels and no history of trauma or spider bites. She is on chronic lisinopril, which has been held. MEDICAL HISTORY: 1. Recurrent pancreatitis. 2. Cholecystectomy. 3. Hypertensive heart disease. 4. History of transient ischemic attack (TIA). 5. Appendectomy. 6. Cholecystectomy. 7. Tonsillectomy. 8. Bladder suspension surgery. SOCIAL HISTORY: Denies any smoking. Retired. Lives in [place]. Has a cottage and summer home in [place]. Former smoker. No recreational drug use. Retired. FAMILY HISTORY: Patient says that her son and have pancreatitis. ALLERGIES: No known drug allergies. HOME MEDICATIONS: - lisinopril 20 mg every night - aspirin 81 mg daily - vitamin C 500 mg daily - Plavix 75 mg daily - Lasix 20 mg daily - potassium 10 mEq daily - pravastatin 40 mg daily - VesiCare 5 mg daily - vitamin B12 at 1000 mcg daily - omeprazole 40 daily REVIEW OF SYSTEMS: Per history of present illness (HPI). A 12-point system otherwise negative. PHYSICAL EXAMINATION: Temperature 97.8, pulse 84, respiratory rate 16, blood pressure 206/99-210/96, 97% on room air. GENERAL: Face is symmetric. Tongue is midline. Speaks in full sentences. No facial asymmetry. Dry mucous membranes with chapped lips. LUNGS: Clear to auscultation. No wheezing, rales, or rhonchi. HEART: S1, S2, sinus rhythm. No murmurs, rubs, or gallops. ABDOMEN: Soft, tender in the epigastric region. No rebound or guarding. No hepatosplenomegaly. No abdominal bruit. EXTREMITIES: No cyanosis, clubbing, or pitting edema. LABORATORY DATA: White count 12, hemoglobin 15, hematocrit 46, platelet count 312. Sodium 131, potassium 3.8, chloride 98, bicarbonate 26, BUN 13, creatinine 0.76, glucose 131, calcium 8.9. Total bilirubin 0.5, direct bilirubin 0.2, AST 11, ALT 23, alkaline phosphatase 83. Total CK 68, MB fraction less than 1. Troponin less than 0.02. Total protein 7.7, albumin 4. Lipase 285. CT of abdomen and pelvis 04/03/2020: Mild parapancreatic inflammatory changes seen in the region of the head of the pancreas, consistent with pancreatitis, less extensive than seen on recent comparison. No evidence of acute diverticulitis. Extensive diverticulosis. Status post cholecystectomy. Stable mildly dilated common bile duct. MRCP 03/27/2020: Cholecystectomy. Mild dilatation of common bile duct, measures 7.4 mm. Finding related to post cholecystectomy physiology. No evidence of choledocholithiasis or obstructing mass. No significant intrahepatic biliary dilatation. Inflammatory changes around the pancreas, which is slightly enlarged. Findings consistent with acute focal pancreatitis. ASSESSMENT AND PLAN: This is a 79-year-old female with recurrent pancreatitis. Had a cholecystectomy done in the past with negative MRCP findings aside from acute focal pancreatitis. Recently admitted March 26 and discharged March 28. Was doing well at home. Then the past 2 days had developed worsening abdominal pain. Now presents with recurrent pancreatitis. IMPRESSION: 1. Recurrent pancreatitis, status post cholecystectomy with negative choledocholithiasis or pancreatic divisum on MRCP on 03/27/2020. Normal lipid panel, calcium level. No history of trauma or spider bite. Denies alcohol abuse. 2. Hypertensive urgency. 3. History of transient ischemic attack (TIA). PLAN: Patient will be admitted to progressive care unit (PCU) for blood pressure control. Due to possible endoscopic retrograde cholangiopancreatography (ERCP), aspirin and Plavix will be held temporarily. Patient has been given labetalol 20 mg intravenously as well as hydralazine 10 IV every 4 for now. Patient will be kept on labetalol 100 mb twice a day with holding parameters on the hydralazine 10 IV every 4 for systolic pressure less than 120. At this time pain will be controlled with morphine as needed 3 mg IV every 3 hours for severe breakthrough pain, Percocet one to two tablets as needed for severe pain. Continue with IV fluids and nothing by mouth status. Await further recommendations from package car driver, Dr. Mcclendon, who has been consulted. He recommended possible ERCP but will review the MRCP findings for now. EJ
[2020-04-04] MEDS ORDERED: MORPHINE 4 MG/ML 1ML VIAL/SYRINGE (J2270) IV PRN (08:00)
[2020-04-04 08:44] LABS: IONIZED CALCIUM 4.3 MG/DL (4.5-5.3)
[2020-04-04] MEDS: KCL 10MEQ IN D5/0.45NS 1000ML 1,000 ML IV SCH ×2 (08:48→23:47)
[2020-04-04 08:52] LABS: BASO % 0.2 % (0.0-1.0); EOS # 0.1 10^3/uL (0.0-0.5); EOS % 0.5 % (0.0-3.0); HEMATOCRIT 39.4 % (36.0-47.0); HEMOGLOBIN 13.2 g/dl (12.0-15.5); LYMPH % 9.3 % (24.0-44.0); MEAN CORPUSCULAR HGB CONC 33.5 g/dl (32.0-36.5); MEAN CORPUSCULAR VOLUME 89.5 fl (80.0-96.0); MONO # 0.6 10^3/uL (0.0-0.8); MONO % 5.1 % (0.0-5.0); NEUTROPHILS # 9.4 10^3/uL (1.5-8.5); NEUTROPHILS % 84.4 % (36.0-66.0); PLATELET COUNT, AUTOMATED 280 10^3/uL (150-450); WHITE BLOOD COUNT 11.2 10^3/uL (4.0-10.0)
[2020-04-04] MEDS: LABETALOL 100MG/20ML VIAL IV SCH ×3 (09:00→19:40)
[2020-04-04] MEDS: PANTOPRAZOLE 40MG VIAL (C9113 PER 1) IV SCH (09:16)
[2020-04-04] MEDS: SOLIFENACIN 5 MG TAB PO SCH (09:16)
[2020-04-04 09:22] LABS: INR 0.99; PROTHROMBIN TIME 13.3 SECONDS (11.8-14.0)
[2020-04-04 09:23] LABS: ALBUMIN 3.1 GM/DL (3.2-5.2); ALT/SGPT 52 U/L (12-78); BILIRUBIN,TOTAL 0.2 MG/DL (0.2-1.0); BLOOD UREA NITROGEN 9 MG/DL (7-18); CALCIUM LEVEL 7.8 MG/DL (8.8-10.2); CARBON DIOXIDE LEVEL 26 MEQ/L (21-32); CHLORIDE LEVEL 106 MEQ/L (98-107); CHOLESTEROL LEVEL 112 MG/DL (<200); CHOLESTEROL RISK RATIO 2.434 (<5); CPK CREATINE PHOSPHOKINASE 72 U/L (26-192); CREATININE FOR GFR 0.67 MG/DL (0.55-1.30); GLOMERULAR FILTRATION RATE > 60.0 (>39); GLUCOSE, FASTING 115 MG/DL (70-100); HDL CHOLESTEROL 46 MG/DL (>40); LDL CHOLESTEROL 46 MG/DL (<100); LIPASE 154 U/L (73-393); MB/CK RELATIVE INDEX 1.39 (< OR =4); NON-HDL-C 66 MG/DL; PARTIAL THROMBOPLASTIN TIME 34.6 SECONDS (25.0-38.4); POTASSIUM SERUM 3.6 MEQ/L (3.5-5.1); SODIUM LEVEL 138 MEQ/L (136-145); TOTAL PROTEIN 5.9 GM/DL (6.4-8.2); TRIGLYCERIDES LEVEL 102 MG/DL (<150); TROPONIN I < 0.02 NG/ML (< 0.10)
--- NOTE | 2020-04-04 12:58 | IPNPDOC ---
Date Seen The patient was seen on 04/04/20. Progress Note SUBJECTIVE: c/o nausea after taking pills this morning. no vomiting, fever, or chills. 7/10 pain epigastric abd. no radiation. no sob despite ivfluids overnight. off antiplatets. c/o visual changes which abated after a few minute. MRI ordered due to history of TIA's usually on chronic ASA, but held due to possible need for ERCP OBJECTIVE: PHYSICAL EXAMINATION: VITALS: SEE BELOW GENERAL: anxious. no use of respiratory muscles. Face is symmetric. Tongue is midline. Speaks in full sentences. No facial asymmetry. Dry mucous membranes with chapped lips. LUNGS: Clear to auscultation. No wheezing, rales, or rhonchi. AEBE. no adventitious breath sounds HEART: S1, S2, sinus rhythm. No murmurs, rubs, or gallops. ABDOMEN: Soft, tender in the epigastric region. No rebound or guarding. No hepatosplenomegaly. No abdominal bruit. EXTREMITIES: No cyanosis, clubbing, or pitting edema. LABORATORY DATA: see below CT of abdomen and pelvis 04/03/2020: Mild parapancreatic inflammatory changes seen in the region of the head of the pancreas, consistent with pancreatitis, less extensive than seen on recent comparison. No evidence of acute diverticulitis. Extensive diverticulosis. Status post cholecystectomy. Stable mildly dilated common bile duct. MRCP 03/27/2020: Cholecystectomy. Mild dilatation of common bile duct, measures 7.4 mm. Finding related to post cholecystectomy physiology. No evidence of choledocholithiasis or obstructing mass. No significant intrahepatic biliary dilatation. Inflammatory changes around the pancreas, which is slightly enlarged. Findings consistent with acute focal pancreatitis. ASSESSMENT AND PLAN: This is a 79-year-old female with recurrent pancreatitis. H ad a cholecystectomy done in the past with negative MRCP findings aside from acute focal pancreatitis. Recently admitted March 26 and discharged March 28. Was doing well at home. Then the past 2 days had developed worsening abdominal pain. Now presents with recurrent pancreatitis. IMPRESSION: 1. Recurrent pancreatitis, status post cholecystectomy with negative choledocholithiasis or pancreatic divisum on MRCP on 03/27/2020. Normal lipid panel, calcium level. No history of trauma or spider bite. Denies alcohol abuse. repeat MRCP per Dr. Mcclendon. possible ERCP to be decided by GI pending MRCP findings. 2. Hypertensive urgency, resolved. due to persistent nausea, changed to iv labe talol and iv hydralazine. keep in pcu due to iv bp meds. 3. History of transient ischemic attack (TIA) with new visual changes. stat MRI Brain. off ASA and plavix due to possible ERCP. DIET: clears per GI DVT prophylaxis: compression stockings. no anticoagulant for possible ERCP. VS, I&O, 24H, Fishbone Vital Signs/I&O Vital Signs Date Time Temp Pulse Resp B/P (MAP) Pulse Ox O2 Delivery O2 Flow Rate FiO2 04/04/20 12:17 132/74 04/04/20 12:00 98.4 100 20 97 Room Air I&O- Last 24 Hours up to 6 AM 04/04/20 05:59 Intake Total 1900 ml Balance 1900 ml Laboratory Data 24H LABS Laboratory Tests 2 04/03/20 13:27: Immature Granulocyte % (Auto) 0.6, Neutrophils (%) (Auto) 85.5H, Lymphocytes (%) (Auto) 8.0L, Monocytes (%) (Auto) 5.1H, Eosinophils (%) (Auto) 0.5, Basophils (%) (Auto) 0.3, Neutrophils # (Auto) 10.6H, Lymphocytes # (Auto) 1.0L, Monocytes # (Auto) 0.6, Eosinophils # (Auto) 0.1, Basophils # (Auto) 0.0, Nucleated Red B lood Cells % (auto) 0.0, Anion Gap 7L, Glomerular Filtration Rate > 60.0, Calcium Level 8.9, Total Bilirubin 0.5, Direct Bilirubin 0.2, Aspartate Amino Transf (AST/SGOT) 11, Alanine Aminotransferase (ALT/SGPT) 23, Alkaline Phosphatase 83, Total Creatine Kinase 68, Creatine Kinase MB < 1.0, Creatine Kinase MB Relative Index 1.47, Troponin I < 0.02, Total Protein 7.7, Albumin 4.0, Albumin/Globulin Ratio 1.1L, Lipase 285 04/04/20 08:25: Immature Granulocyte % (Auto) 0.5, Neutrophils (%) (Auto) 84.4H, Lymphocytes (%) (Auto) 9.3L, Monocytes (%) (Auto) 5.1H, Eosinophils (%) (Auto) 0.5, Basophils (%) (Auto) 0.2, Neutrophils # (Auto) 9.4H, Lymphocytes # (Auto) 1.0L, Monocytes # (Auto) 0.6, Eosinophils # (Auto) 0.1, Basophils # (Auto) 0.0, Nucleated Red Blood Cells % (auto) 0.0, Anion Gap 6L, Glomerular Filtration Rate > 60.0, Calcium Level 7.8L, Total Bilirubin 0.2#, Aspartate Amino Transf (AST/SGOT) 31, Alanine Aminotransferase (ALT/SGPT) 52, Alkaline Phosphatase 75, Total Creatine Kinase 72, Creatine Kinase MB 1.0, Creatine Kinase MB Relative Index 1.39, Troponin I < 0.02, Total Protein 5.9#L, Albumin 3.1#L, Albumin/Globulin Ratio 1.1L, Lipase 154, Prothrombin Time 13.3, Prothromb Time International Ratio 0.99, Activated Partial Thromboplast Time 34.6, Whole Blood Ionized Calcium 4.3L, Magnesium Level 2.0, Triglycerides Level 102, Total Cholesterol 112, LDL Cholesterol 46, Non-HDL Cholesterol (LDL + VLDL) 66, Total HDL Cholesterol 46, Cholesterol/HDL Ratio 2.434 CBC/BMP Laboratory Tests 04/03/20 13:27 04/04/20 08:25 EMILY WOLFE MD Apr 04, 2020 12:58
--- NOTE | 2020-04-04 17:53 | REPVR ---
PROCEDURE INFORMATION: Exam: MR Head Without Contrast Exam date and time: 04/04/2020 10:49 AM Age: 79 years old Clinical indication: Visual disturbance; Additional info: H/o TIA. Ocular blindness R/O acute occipital CVA TECHNIQUE: Imaging protocol: MR of the head without contrast. COMPARISON: No relevant prior studies available. FINDINGS: Brain: There is a possible tiny focus of restricted diffusion within the posterior right putamen, image 14. An acute/subacute lacunar infarct is possible. No other areas of restricted diffusion are seen. There is a small focus of susceptibility artifact or hemosiderin deposition in the right occipital lobe. There is no acute intracranial hemorrhage, cerebral edema, or midline shift. Age-related cerebral and cerebellar substance loss is present. Scattered increased T2 and FLAIR signal within the periventricular and subcortical white matter is present. This is nonspecific but likely related to chronic microangiopathic ischemic change. Ventricles: Mild ex vacuo dilation of the lateral and third ventricles is noted. Bones/joints: Unremarkable. Sinuses: Normal as visualized. No acute sinusitis. Mastoid air cells: Normal as visualized. No mastoid effusion. Orbits: Unremarkable. Soft tissues: Unremarkable. IMPRESSION: 1. Probable punctate acute/subacute lacunar infarct in the right putamen 2. Chronic findings as discussed above. Electronically signed by: Denilson Fraser On 04/04/2020 17:53:13 PM
[2020-04-04] MEDS ORDERED: ASPIRIN ENTERIC 325 MG TAB PO PRN (18:00)
--- NOTE | 2020-04-04 18:01 | IPNPDOC ---
Date Seen The patient was seen on 04/04/20. Progress Note ADDENDUM: MRI BRAIN: Probable punctate acute/subacute lacunar infarct in the right putamen PLAN: DUE TO NEW FINDINGS OF OCULAR SYMPTOMS AND ACUTE/SUBACUTE LACUNAR INFARCT, WILL NEED TO POSTPONE ANY INVASIVE GI PROCEDURES DUE TO NEED TO RESUME ASA AND PLAVIX. VS, I&O, 24H, Fishbone Vital Signs/I&O Vital Signs Date Time Temp Pulse Resp B/P (MAP) Pulse Ox O2 Delivery O2 Flow Rate FiO2 04/04/20 16:25 136/65 04/04/20 16:00 98.1 92 20 98 Room Air I&O- Last 24 Hours up to 6 AM 04/04/20 06:00 Intake Total 1900 ml Balance 1900 ml Laboratory Data 24H LABS Laboratory Tests 2 04/04/20 08:25: Immature Granulocyte % (Auto) 0.5, Neutrophils (%) (Auto) 84.4H, Lymphocytes (%) (Auto) 9.3L, Monocytes (%) (Auto) 5.1H, Eosinophils (%) (Auto) 0.5, Basophils (%) (Auto) 0.2, Neutrophils # (Auto) 9.4H, Lymphocytes # (Auto) 1.0L, Monocytes # (Auto) 0.6, Eosinophils # (Auto) 0.1, Basophils # (Auto) 0.0, Nucleated Red Blood Cells % (auto) 0.0, Prothrombin Time 13.3, Prothromb Time International Ratio 0.99, Activated Partial Thromboplast Time 34.6, Anion Gap 6L, Glomerular Filtration Rate > 60.0, Calcium Level 7.8L, Whole Blood Ionized Calcium 4.3L, Magnesium Level 2.0, Total Bilirubin 0.2#, Aspartate Amino Transf (AST/SGOT) 31, Alanine Aminotransferase (ALT/SGPT) 52, Alkaline Phosphatase 75, Total Creatine Kinase 72, Creatine Kinase MB 1.0, Creatine Kinase MB Relative Index 1.39, Troponin I < 0.02, Total Protein 5.9#L, Albumin 3.1#L, Albumin/Globulin Ratio 1.1L, Triglycerides Level 102, Total Cholesterol 112, LDL Cholesterol 46, Non- HDL Cholesterol (LDL + VLDL) 66, Total HDL Cholesterol 46, Cholesterol/HDL Ratio 2.434, Lipase 154 CBC/BMP Laboratory Tests 04/04/20 08:25 EMILY WOLFE MD Apr 04, 2020 18:01
[2020-04-04] MEDS: CLOPIDOGREL 75 MG TAB PO SCH (18:30)
[2020-04-04] MEDS: ASPIRIN 325 MG TAB PO SCH (20:36)
[2020-04-05] VITALS (7 sets, daily range): BP systolic 116–150; BP diastolic 57–80
[2020-04-05] MEDS: LABETALOL 100MG/20ML VIAL IV SCH ×3 (01:42→14:00)
[2020-04-05] MEDS: hydrALAZINE 20MG/ML 1ML VIAL (J0360 PER 20MG) IV SCH ×3 (03:43→12:46)
[2020-04-05] MEDS: SLF 3 ML SYR IV SCH ×2 (05:00→14:04)
[2020-04-05] MEDS: CLOPIDOGREL 75 MG TAB PO SCH (09:46)
[2020-04-05] MEDS: ASPIRIN 325 MG TAB PO SCH (09:46)
[2020-04-05] MEDS: PANTOPRAZOLE 40MG VIAL (C9113 PER 1) IV SCH (09:46)
[2020-04-05] MEDS ORDERED: PROHANCE 279.3MG/ML 15ML VIAL As Ordered ONE (10:03)
[2020-04-05] MEDS: SOLIFENACIN 5 MG TAB PO SCH (10:49)
[2020-04-05] MEDS ORDERED: ASPI-527 PO (11:14)
--- NOTE | 2020-04-05 11:18 | REPVR ---
PROCEDURE INFORMATION: Exam: MR Abdomen Without and With Contrast Exam date and time: 04/05/2020 10:10 AM Age: 79 years old Clinical indication: Pain and condition or disease; Pancreatic condition; Idiopathic; Abdominal pain; Epigastric; Patient HX: Recurrent pancreatitis; Additional info: Pancreatic protocol recurrent pancreatitis TECHNIQUE: Imaging protocol: MR of the abdomen without and with intravenous contrast. Contrast material: PROHANCE; Contrast volume: 15 ml; Contrast route: INTRAVENOUS (IV); COMPARISON: MRI ABDOMEN WITHOUT CONTRAST 03/27/2020 8:38 PM FINDINGS: Liver: No mass. Gallbladder and bile ducts: Status post cholecystectomy. Pancreas: Unremarkable. No ductal dilation. Spleen: Unremarkable. No splenomegaly. Adrenals: Unremarkable. No mass. Kidneys and ureters: Unremarkable. No solid mass. No hydronephrosis. Stomach and bowel: Visualized stomach and intestines are unremarkable. Intraperitoneal space: No free fluid. Arteries: No abdominal aortic aneurysm. Bones/joints: Unremarkable. Soft tissues: Unremarkable. IMPRESSION: Unremarkable abdomen. Electronically signed by: Oracio Vernon On 04/05/2020 11:17:59 AM
--- NOTE | 2020-04-18 13:16 | ECGEPIP ---
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
--- NOTE | 2020-04-23 12:05 | DSES ---
DATE OF ADMISSION: 04/03/2020. DATE OF DISCHARGE: 04/05/2020. CONSULTANTS: Reworker; Dr. Mcclendon. PRIMARY DISCHARGE DIAGNOSES: 1. Recurrent acute pancreatitis. 2. History of multiple TIAs. 3. Acute/subacute lacunar infarct on the right putamen with ocular findings resolved after a few minutes. 4. Hypertensive urgency. 5. Hypocalcemia. 6. Hyponatremia. DISCHARGE MEDICATIONS: 1. Aspirin 325 mg daily. 2. Plavix 75 mg daily. 3. Ascorbic acid 500 mg daily. 4. Vitamin B12 1,000 mcg daily. 5. Lasix 20 mg daily. 6. Lisinopril 20 mg q.h.s. 7. Prilosec 40 mg daily. 8. Potassium 10 mEq daily. 9. Pravastatin 40 mg q.h.s. 10. VESIcare 5 mg daily. DISCHARGE INSTRUCTIONS: 1. Due to recurrent TIA, patient was advised to have her primary care physician refer her to a munitions handler for possible implantable loop recorder to determine if patient has underlying atrial fibrillation and may need higher tier anticoagulation with Eliquis or Xarelto if atrial fibrillation is confirmed. 2. Recurrent pancreatitis; MRI of the abdomen, pancreatic protocol has been obtained. Patient may need ERCP and gastroenterology referral as an outpatient. 3. Due to recurrent TIA despite aspirin and Plavix, patient should have a neurology follow-up and workup for hypercoagulable state and referral for implantable loop recorder to rule out atrial fibrillation as cause for patient's cryptogenic TIAs. HOSPITAL COURSE: This is a 79-year-old female initially admitted to [facility] from 03/26 to 03/28 with acute pancreatitis. Patient had a prior cholecystectomy, had normal liver function tests without bilirubin elevation as well as normal lipid profile and calcium levels. Patient had an MRCP performed, which showed post cholecystectomy with no pancreatic divisum or retained choledocholithiasis. The patient was initially kept n.p.o. with I.V. fluids, slowly advanced to a full liquid diet and tolerated a low fat, low cholesterol prior to hospital discharge. Patient did well at home, had had no fever, chills, nausea, vomiting or abdominal pain for two days. Then patient re-presented again on 04/03/2020 with epigastric abdominal pain that is radiating to the back. No fever or chills. She was found to have some leukocytosis of 12,000. Repeat CT abdomen and pelvis showed improvement in inflammation in the pancreas. Reworker, Dr. Mcclendon, was consulted to ascertain etiology of patient's recurrent pancreatitis. Due to family history of pancreatitis in her son and cousin, Dr. Mcclendon recommended an MRI of the abdomen, and pancreatic protocol to rule out malignancy. Patient again was kept n.p.o., advanced to clear and liquid diet as tolerated. Due to anticipation for ERCP to be done, her aspirin and Plavix were held on the day of admission. After 24 hours, she complained of visual changes, which resolved after a few minutes. Stat MRI of the brain shows an acute/subacute lacunar infarct in the right putamen. At that point, patient's aspirin and Plavix were resumed within a few hours of the MRI and patients ERCP had been cancelled. Patient tolerated her diet to a full liquid diet. She remained afebrile with white count decreasing to 11.2 with no chills and no fevers. She was advised to be referred to a wanigan clerk when she returns to [place] and to have a cardiology referral and neurology to further look into her history of multiple TIAs to see if a loop recorder would benefit her to rule out underlying atrial fibrillation for her cryptogenic TIAs and stroke. PHYSICAL EXAMINATION ON DISCHARGE: VITALS: Temperature 98.7, pulse 85, respiratory rate 16, blood pressure 142/71, 96% on room air. GENERAL: Awake, alert and oriented to person, place and time. HEENT: Anicteric sclerae, no jaundice. Face is symmetric. Tongue is midline. Speech is fluent. No conversational dyspnea. No JVD or thyromegaly. No cervical lymphadenopathy. No carotid bruits. LUNGS: Air entry is equal bilaterally. No adventitious breath sounds. Clear to auscultation. No wheezing, rales or rhonchi. HEART: S1, S2, sinus rhythm. No murmurs, rubs or gallops. Trace lower extremity edema. ABDOMEN: Soft, slightly tender epigastric region. Left upper quadrant no radiation. Positive bowel sounds x4 quadrants. No abdominal bruit. No fluid wave. Obese abdomen, non-distended. EXTREMITIES: Trace edema. LABORATORY DATA: White count 11.2, hemoglobin 13, hematocrit 39, platelet count 280,000. Sodium 138, potassium 3.6, chloride 106, bicarb 26, BUN 9, creatinine 0.67, glucose 115, calcium 7.8. Ionized calcium 4.3. Magnesium 2. Total bilirubin 0.2, direct bilirubin 0.2, AST 31, ALT 52, alkaline phosphatase 75. Total CK 72, MB fraction 1. Troponin less than 0.02. Albumin 3.1. Triglyceride 102. Total cholesterol 112, LDL 46, non-HDL 66, lipase 154. IMAGING STUDIES: MRI of the abdomen 04/05/2020; unremarkable. Pancreatic protocol. Brain MRI; acute/subacute lacunar infarct right putamen. CT abdomen and pelvis; improved inflammation in the pancreas with 3 mm hypodensity in the spleen too small for further characterization. Status post cholecystectomy, mild peripancreatic inflammatory changes; less extensive than prior exam, extensive diverticulosis. No evidence of acute diverticulitis. Mildly dilated common bile duct. TIME SPENT ON DISCHARGE: 30 minutes. MTDD
== END 2020-04-05 15:04 | disposition home or self-care (01) | DRG 438 ==
LOC: M ED 11:58 → M ED INP 16:36 → ENRESERV 18:29 → M PCU 20:15
PROVIDERS: ADMIT General Practice; ATTEND General Practice
DX: K85.90 Acute pancreatitis without necrosis or infection, unspecified (principal); I63.59 Cerebral infarction due to unspecified occlusion or stenosis of other cerebral artery; E87.1 Hypo-osmolality and hyponatremia; I11.9 Hypertensive heart disease without heart failure; K57.90 Diverticulosis of intestine, part unspecified, without perforation or abscess without bleeding; K86.1 Other chronic pancreatitis; E83.51 Hypocalcemia; I16.0 Hypertensive urgency; Z86.73 Personal history of transient ischemic attack (TIA), and cerebral infarction without residual deficits; Z90.49 Acquired absence of other specified parts of digestive tract; Z87.891 Personal history of nicotine dependence; Z79.82 Long term (current) use of aspirin; Z79.02 Long term (current) use of antithrombotics/antiplatelets; Z79.899 Other long term (current) drug therapy

== ENCOUNTER → 2020-12-27 | Outpatient (CLI) | payer OTHER ==
[~2020-12-27] MED LIST changes: -ASCORBIC ACID 500 MG TAB PO SCH; +ASPI-527 PO; +ASPI325T47 PO; -FUROSEMIDE 20 MG TAB PO SCH; -LISI-538 PO; +LISI20TA33 PO; -POTASSIUM CHLORIDE 10 MEQ SR TABLET PO SCH
--- NOTE | 2020-12-27 11:45 | REP ---
INDICATION: M25.561, ACUTE PAIN OF RIGHT KNEE COMPARISON: None. TECHNIQUE: Five views right knee. FINDINGS: There is no evidence of acute fracture, dislocation, or intrinsic bone disease.There is no radiographic evidence of a significant joint effusion. There are mild vascular calcifications in the posterior soft tissues. There is mild chondrocalcinosis in the lateral joint. IMPRESSION: No fracture or dislocation. Mild chondrocalcinosis. <Electronically signed by Alvin Pittman > 12/27/20 [id number]
== END ==
LOC: M CLY 11:18
PROVIDERS: ATTEND Physician Assistant
DX: M25.561 Pain in right knee (principal); M11.261 Other chondrocalcinosis, right knee

== ENCOUNTER → 2021-04-03 | Outpatient (REF) | payer OTHER | LOC: M WUC 15:35 | PROVIDERS: ATTEND Physician Assistant | DX: S81.802D Unspecified open wound, left lower leg, subsequent encounter (principal) ==

== ENCOUNTER → 2022-03-11 | Outpatient (CLI) | payer OTHER ==
[~2022-03-11] MED LIST changes: -OMEP-221 PO; +OMEP40CA5 PO
== END ==
LOC: M WUC 12:21
PROVIDERS: ATTEND Family Medicine
DX: Z96.641 Presence of right artificial hip joint (principal)

== ENCOUNTER → 2022-04-06 | Outpatient (CLI) | payer OTHER | LOC: M WUC 09:55 | PROVIDERS: ATTEND Physician Assistant | DX: S52.502A Unspecified fracture of the lower end of left radius, initial encounter for closed fracture (principal) ==

== ENCOUNTER 2025-03-14 14:02 | Observation (INO) | payer OTHER ==
[~2025-03-14] VITALS: Ht 152.4 cm; Wt 61.6 kg
[~2025-03-14 14:02] MED LIST changes: +CYAN-1 PO; -CYAN100050 PO; -PRAV40TA2 PO; +PRAV40TA85 PO
[2025-03-14] MEDS ORDERED: ISOVUE-370 76% 100 ML VIAL As Ordered ONE (14:25)
[2025-03-14 14:28] VITALS: BP 147/77; TEMP 96.8; O2SAT 99
[2025-03-14 14:49] LABS: BASO # 0.0 10^3/uL (0.0-0.2); BASO % 0.5 % (0.0-1.0); EOS # 0.1 10^3/uL (0.0-0.5); EOS % 3.2 % (0.0-3.0); LYMPH # 0.6 10^3/uL (1.5-5.0); LYMPH % 13.8 % (24.0-44.0); MONO # 0.4 10^3/uL (0.0-0.8); MONO % 9.6 % (2.0-8.0); NEUTROPHILS # 3.0 10^3/uL (1.5-8.5); NEUTROPHILS % 72.7 % (36.0-66.0); PLATELET COUNT, AUTOMATED 264 10^3/uL (150-450)
[2025-03-14 15:12] LABS: INR 0.91
[2025-03-14] MEDS ORDERED: MED REC IN PROGRESS XX SCH (19:55)
[2025-03-14 19:58] LABS: ALT/SGPT 19.0 U/L (7.0-40); AST/SGOT 27.0 U/L (<34); CALCIUM LEVEL 9.0 MG/DL (8.3-10.6); CARBON DIOXIDE LEVEL 29.0 MMOL/L (20-31); CHLORIDE LEVEL 101.0 MMOL/L (98-107); CREATININE FOR GFR 0.67 MG/DL (0.55-1.30); GLOMERULAR FILTRATION RATE 86.1 (>32); POTASSIUM SERUM 4.3 MMOL/L (3.5-5.1); SODIUM LEVEL 136.0 MMOL/L (136-145)
[2025-03-14 21:04] LABS: CHOLESTEROL LEVEL 99.0 MG/DL (<200); CHOLESTEROL RISK RATIO 2.32 (<5); LDL CHOLESTEROL 38.3 MG/DL (<100); NON-HDL-C 56.5 MG/DL; TRIGLYCERIDES LEVEL 91.0 MG/DL (<150)
[2025-03-14 21:33] LABS: ESTIMATED AVERAGE GLUCOSE 126.0 MG/DL (60-110)
[2025-03-14] MEDS: ATORVASTATIN 20 MG TAB PO SCH (22:30)
[2025-03-14 22:45] VITALS: BP 168/71; TEMP 97.2; O2SAT 97
[2025-03-14 23:00] VITALS: O2SAT 96
[2025-03-15] VITALS (16 sets, daily range): BP systolic 137–164; BP diastolic 69–76; TEMP 97–97.6; O2SAT 84–98
[2025-03-15] MEDS: ONDANSETRON 4MG 2ML VIAL IV ONE (01:00)
[2025-03-15 05:39] LABS: VENOUS BASE EXCESS -0.2 (-2.0-2.0); VENOUS HCO3 24.3 MMOL/L (23.0-27.0); VENOUS O2 SATURATION 98.7 % (60.0-80.0); VENOUS PARTIAL PRESSURE CO2 39.4 mmHg (38.0-50.0); VENOUS PARTIAL PRESSURE O2 152.1 mmHg (30.0-50.0); VENOUS PH 7.408 UNITS (7.330-7.430); VENOUS STANDARD HCO3 24.3 MMOL/L; VENOUS TOTAL CO2 25.5 MMOL/L (24.0-28.0)
[2025-03-15 05:47] LABS: PLATELET COUNT, AUTOMATED 244 10^3/uL (150-450)
[2025-03-15 06:15] LABS: CALCIUM LEVEL 8.9 MG/DL (8.3-10.6); CARBON DIOXIDE LEVEL 26.0 MMOL/L (20-31); CHLORIDE LEVEL 101.0 MMOL/L (98-107); CREATININE FOR GFR 0.61 MG/DL (0.55-1.30); GLOMERULAR FILTRATION RATE 88.1 (>32); POTASSIUM SERUM 3.8 MMOL/L (3.5-5.1); SODIUM LEVEL 140.0 MMOL/L (136-145)
[2025-03-15] MEDS ORDERED: ASPI81TA26 PO (09:01)
[2025-03-15] MEDS: ASPIRIN 81 MG CHEWABLE TABLET PO SCH (10:02)
[2025-03-15] MEDS: CLOPIDOGREL 75 MG TAB PO SCH (10:02)
[2025-03-15] MEDS: ENOXAPARIN 40 MG/0.4 ML SYRINGE (J1650 PER 10MG) SC SCH (10:03)
[2025-03-15] MEDS ORDERED: CRES40TA PO (14:14)
== END 2025-03-15 15:04 | disposition home or self-care (01) ==
LOC: EDBD 14:02 → M ED 14:02 → M ED INP 14:03 → M PCU 22:36
PROVIDERS: ADMIT Student in an Organized Health Care Education/Training Program; ATTEND Student in an Organized Health Care Education/Training Program
DX: G45.9 Transient cerebral ischemic attack, unspecified (principal); R47.01 Aphasia; I77.1 Stricture of artery; I67.82 Cerebral ischemia; G47.30 Sleep apnea, unspecified; E04.1 Nontoxic single thyroid nodule; Z79.82 Long term (current) use of aspirin; Z79.01 Long term (current) use of anticoagulants; Z79.899 Other long term (current) drug therapy; I73.9 Peripheral vascular disease, unspecified
CPT/HCPCS: 36415; 70450; 70496; 70498; 70551; 71045; 80047; 80048; 80053; 80061; 82803; 83036; 85025; 85027; 85610; 85730; 86850; 86900; 86901; 92610; 93005; 93041; 93306; 94760; 96372; 97116; 97161; 97165; 99285; G0378; G0463; J1650; Q9967